=== PATIENT | female | born 1945 | race Caucasian/White ===

== ENCOUNTER 2021-03-27 10:50 | Inpatient (IN) | payer OTHER ==
[2021-03-27 12:06] LABS: Absolute Lymphocytes (CBC) 0.9 K/uL (0.7-4.9); Basophils % 0.1 % (0-1.3); Hematocrit 39.5 % (36.0-45.0); Lymphocytes % 4.5 % (15.3-44.8); MPV 10.3 fL (7.6-11.3); RBC Red Blood Cell Count 4.42 M/uL (3.86-4.86)
[2021-03-27 12:09] LABS: Protime INR 1.3
[2021-03-27 12:47] LABS: Bilirubin Direct 0.3 mg/dL (0-0.2); Bilirubin Total 0.6 mg/dL (0.2-1.0); Potassium 3.2 mmol/L (3.5-5.1); Protein, Total 7.4 g/dL (6.4-8.2); Troponin (Emerg Dept Use Only) 0.22 ng/mL (0.0-0.045)
[2021-03-27 12:52] LABS: Platelet Estimate ADEQ
[2021-03-27 12:53] LABS: Blood Morphology Comment NOT SEEN (NOT SEEN)
--- NOTE | 2021-03-27 12:54 | RAD REPORT ---
EXAM DESCRIPTION: RAD - Chest Single View - 03/27/2021 12:34 pm CLINICAL HISTORY: DYSPNEA COMPARISON: Chest Single View dated 08/29/2017; Chest Pa And Lat (2 Views) dated 10/29/2016 FINDINGS: Lines: None. Lungs: No evidence of edema or pneumonia. Pleural: No significant pleural effusions or pneumothorax. Cardiac: The heart size is within normal limits. Bones: No acute fractures. Other: IMPRESSION: No acute cardiopulmonary disease.
[2021-03-27] MEDS ORDERED: ONDANSETRON 4 MG/2 ML VIAL IV PRN (13:05)
[2021-03-27] MEDS ORDERED: ACETAMINOPHEN 500 MG TAB PO PRN (13:05)
[2021-03-27] MEDS ORDERED: MORPHINE 2 MG/ML SYR IV PRN (13:05)
--- NOTE | 2021-03-27 13:11 | P.HP ---
Certification for Inpatient Patient admitted to: Inpatient With expected LOS: >2 Midnights Patient will require the following post-hospital care: None Practitioner: I am a practitioner with admitting privileges, knowledge of patient current condition, hospital course, and medical plan of care. Services: Services provided to patient in accordance with Admission requirements found in Title 42 Section 412.3 of the Code of Federal Regulations Patient History Date of Service: 03/27/21 Reason for admission: AMS; DEHYDRATION/HYPERNATREMIA History of Present Illness: Patient is a 75-year-old female with a history of Alzheimer's dementia. 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 The patient has been living at the assisted and for the last couple of months she has lost the ability to ambulate. She lives at [facility].Patient has had altered mentation. She was brought into the hospital for further evaluation. She was found to have a significantly elevated sodium level. Patient has of free water deficit of 5 L. Patient was admitted to the hospital and started on normal saline boluses. We will go ahead and switch patient to D5 water. Patient will be admitted to the hospital for further evaluation. Allergies aspirin Allergy (Verified 03/27/21 17:45) Unknown naproxen [From Aleve] Allergy (Verified 03/27/21 17:45) Unknown omeprazole [From Prilosec] Allergy (Verified 03/27/21 17:45) Unknown Home Medications: Acetaminophen [Tylenol] 650 mg PO Q6HR PRN 03/27/21 Amlodipine [Norvasc] 5 mg PO DAILY 03/27/21 Escitalopram Oxalate 20 mg PO DAILY 03/27/21 Lisinopril [Zestril] 10 mg PO DAILY 03/27/21 Megestrol Acetate 10 ml PO BID 03/27/21 Memantine HCl [Namenda Xr] 28 mg PO DAILY 03/27/21 Pravastatin Sodium 10 mg PO BEDTIME 03/27/21 Rivastigmine Tartrate [Rivastigmine] 6 mg PO BID 03/27/21 - Past Medical/Surgical History -: Alzheimer's dementia -: Hypertension -: And depression Past Surgical History: Patient denies surgical history - Family History Father Family History: Reviewed- Non-Contributory - Social History Smoking Status: Never smoker Alcohol use: No CD- Drugs: No Review of Systems 10-point ROS is otherwise unremarkable Physical Examination - Vital Signs Temperature: 98 F Blood Pressure: 140/80 Pulse: 88 Respirations: 18 Pulse Ox (%): 96 - Physical Exam General: Cachectic, Unresponsive HEENT: Atraumatic, PERRLA, Mucous membr. moist/pink, EOMI, Sclerae nonicteric Neck: Supple, 2+ carotid pulse no bruit, No LAD, Without JVD or thyroid abnormality Respiratory: Clear to auscultation bilaterally, Normal air movement Cardiovascular: Regular rate/rhythm, Normal S1 S2, No murmurs Gastrointestinal: Normal bowel sounds, Soft and benign, Non-distended, No tenderness Musculoskeletal: No clubbing, No swelling, No tenderness Integumentary: No rashes Neurological: Cranial nerves 3-12 intact, Abnormal strength - Studies Laboratory Data (last 24 hrs) 03/27/21 11:49: PT 15.0 H, INR 1.30, APTT 27.1 03/27/21 11:49: WBC 20.60 H*, Hgb 12.4, Hct 39.5, Plt Count 221 03/27/21 11:49: Sodium 168 H*, Potassium 3.2 L, BUN 49 H, Creatinine 1.34 H, Glucose 181 H, Total Bilirubin 0.6, AST 41 H, ALT 54, Alkaline Phosphatase 67, Lipase 57 L Assessment & Plan - Problems (Diagnosis) (1) Fronto-temporal dementia Current Visit: Yes Status: Acute (2) Anorexia Current Visit: Yes Status: Acute (3) Hypernatremia Current Visit: Yes Status: Acute (4) AMS (altered mental status) Current Visit: Yes Status: Acute (5) HTN (hypertension) Current Visit: Yes Status: Acute - Plan Plan: 1. Patient's free water deficit of 5L which should be corrected over 3 days; will do D5Wr at about 75 cc/hr. 2. Once patient's mentation improved with the physical therapy evaluation 3. Speech therapy evaluation 4. Spoke with family regarding hospice care. Will reassess once she wakes up and they will see she does after treatment 5. Strict blood pressure control 6. GI and DVT prophylaxis Discharge Plan: Senior Care Plan to discharge in: Greater than 2 days - Advance Directives Does patient have a Living Will: No Does patient have a Durable POA for Healthcare: No - Code Status/Comfort Care Code Status Assessed: Yes Code Status: Full Code Critical Care: No Time Spent Managing PTS Care (In Minutes): 45
--- NOTE | 2021-03-27 13:14 | EDPHYS ---
Physician Documentation [facility] Name: Idalmis Petty Age: 75 yrs Sex: Female : 1945 Arrival Date: 03/27/2021 Time: 10:59 Bed 26 Private MD: ED Physician Sami Bang HPI: 03/27 13:08 This 75 yrs old Female presents to ER via EMS with complaints of Low oxygen jr8 saturationn. 13:08 This is a 75-year-old female that presented to the emergency room via EMS after being jr8 toned out for low oxygen saturation at the care home. EMS stated that the care home had told him that her oxygen was in the 60s and 70s. EMS read in the 80s upon arrival. Patient now 95% on nasal cannula. Subsequently EMS stated that she also was initially hypotensive. Patient received fluid bolus and now normotensive at this time. Historical: - Allergies: 11:21 Aleve; jl7 11:21 Aspirin; jl7 11:21 Prilosec; jl7 - Home Meds: 11:21 amlodipine 5 mg tab 1 tab once daily [Active]; escitalopram oxalate 10 mg Oral tab 1 jl7 tab once daily [Active]; Exelon 6 mg Oral cap 1 cap 2 times per day [Active]; lisinopril 10 mg Oral tab 1 tab once daily [Active]; Namenda XR 28 mg oral CSpX 1 cap once daily [Active]; pravastatin 20 mg Oral tab 1 tab once daily [Active]; - PMHx: 11:21 dementia without behavioral disturbance; gastro-esophageal reflux; Hyperlipidemia; jl7 Hypertension; Hypothyroidism; Major Depressive Disorder; Depressive disorder; - Immunization history:: Adult Immunizations unknown. - Social history:: Smoking status: unknown. ROS: 13:08 Unable to obtain ROS due to baseline dementia. jr8 Exam: 13:08 Eyes: Pupils equal round and reactive to light, extra-ocular motions intact. Lids and jr8 lashes normal. Conjunctiva and sclera are non-icteric and not injected. Cornea within normal limits. Periorbital areas with no swelling, redness, or edema. ENT: Nares patent. No nasal discharge, no septal abnormalities noted. Tympanic membranes are normal and external auditory canals are clear. Oropharynx with no redness, swelling, or masses, exudates, or evidence of obstruction, uvula midline. Mucous membranes moist. Neck: Trachea midline, no thyromegaly or masses palpated, and no cervical lymphadenopathy. Supple Cardiovascular: Regular rate and rhythm with a normal S1 and S2. Grade 3/6 systolic murmur present over the right and left sternal borders. No pulse deficits noted. Respiratory: Lungs have equal breath sounds bilaterally, clear to auscultation and percussion. No rales, rhonchi or wheezes noted. No increased work of breathing, no retractions or nasal flaring. Abdomen/GI: Soft, with normal bowel sounds. Patient has grimace and moaning with palpation of the abdomen no distention noted Skin: Warm, dry with normal turgor. Normal color with no rashes, no lesions, and no evidence of cellulitis. MS/ Extremity: Pulses equal, no cyanosis. Neurovascular intact. Full, normal range of motion. 13:08 Neuro: Orientation: Not oriented to person, place, time, situation, Mentation: able to follow commands, Patient follows some commands, Motor: moves all fours, seizure activity, is not displayed by the patient, Abnormal movements: resting tremor, is located in the right arm and left arm. Vital Signs: 11:00 BP 108 / 56; Pulse 91; Resp 19; Temp 97; Pulse Ox 95% on R/A; Weight 65.77 kg; jl7 11:30 BP 109 / 88; Pulse 93; Resp 19; Pulse Ox 94% ; jl7 12:00 BP 113 / 95; Pulse 103; Resp 19; Pulse Ox 95% ; jl7 12:30 BP 102 / 55; Pulse 108; Resp 18; Pulse Ox 95% ; jl7 13:00 BP 105 / 68; Pulse 92; Resp 19; Pulse Ox 99% ; jl7 14:00 BP 107 / 74; Pulse 80; Resp 15; Pulse Ox 99% ; jl7 MDM: 11:08 Patient medically screened. [facility] 13:12 Data reviewed: vital signs, nurses notes, lab test result(s), EKG, radiologic studies, [facility] CT scan, plain films. Data interpreted: Pulse oximetry: on room air is 95 %. Interpretation: normal. Counseling: I had a detailed discussion with the patient and/or guardian regarding: the historical points, exam findings, and any diagnostic results supporting the discharge/admit diagnosis, lab results, radiology results, the need for further work-up and treatment in the hospital. 03/27 11:15 Order name: Basic Metabolic Panel [facility] 03/27 11:15 Order name: Blood Culture Adult (2) [facility] 03/27 11:15 Order name: CBC with Diff [facility] 03/27 11:15 Order name: CPK [facility] 03/27 11:15 Order name: LFT's [facility] 03/27 11:15 Order name: Lactate [facility] 03/27 11:15 Order name: Lipase [facility] 03/27 11:15 Order name: Procalcitonin [facility] 03/27 11:15 Order name: Protime (+inr) [facility] 03/27 11:15 Order name: Ptt, Activated; Complete Time: 12:26 [facility] 03/27 11:15 Order name: Troponin (emerg Dept Use Only); Complete Time: 12:51 [facility] 03/27 11:15 Order name: Urine Microscopic Only [facility] 03/27 11:16 Order name: Basic Metabolic Panel; Complete Time: 12:51 EDMS 03/27 11:15 Order name: Chest Single View XRAY; Complete Time: 13:14 [facility] 03/27 11:16 Order name: Blood Culture [facility] 03/27 11:16 Order name: CBC with Automated Diff; Complete Time: 13:14 EDMS 03/27 11:16 Order name: Creatine Phosphokinase; Complete Time: 12:51 EDMS 03/27 11:16 Order name: Liver (Hepatic) Function; Complete Time: 12:51 EDMS 03/27 11:16 Order name: Lactate; Complete Time: 12:26 EDMS 03/27 11:16 Order name: Lipase; Complete Time: 12:51 EDMS 03/27 11:16 Order name: Procalcitonin; Complete Time: 13:14 EDMS 03/27 11:16 Order name: Protime (+INR); Complete Time: 12:26 EDMS 03/27 12:34 Order name: SARS-COV-2 RT PCR; Complete Time: 13:41 EDMS 03/27 12:51 Order name: CT Abd/Pelvis - IV Contrast Only; Complete Time: 14:07 [facility] 03/27 12:53 Order name: Manual Differential; Complete Time: 13:14 EDMS 03/27 13:09 Order name: Comprehensive Metabolic Panel [facility] 03/27 13:09 Order name: Comprehensive Metabolic Panel [facility] 03/27 13:28 Order name: Urine Dipstick-Ancillary; Complete Time: 13:41 [facility] 03/27 15:39 Order name: Lactate Sepsis 2 HR Follow-up; Complete Time: 15:52 [facility] 03/27 11:15 Order name: Accucheck; Complete Time: 13:28 [facility] 03/27 11:15 Order name: Cardiac monitoring; Complete Time: 12:05 [facility] 03/27 11:15 Order name: EKG - Nurse/Tech; Complete Time: 12:56 [facility] 03/27 11:15 Order name: IV Saline Lock - Large Bore; Complete Time: 12:05 [facility] 03/27 11:15 Order name: Labs collected and sent; Complete Time: 12:05 [facility] 03/27 11:15 Order name: O2 Per Protocol; Complete Time: 12:05 [facility] 03/27 11:15 Order name: O2 Sat Monitoring; Complete Time: 12:05 [facility] 03/27 11:15 Order name: Urine Dipstick-Ancillary (obtain specimen); Complete Time: 13:28 [facility] 03/27 11:16 Order name: Straight Cath - Urine; Complete Time: 13:28 [facility] 03/27 13:09 Order name: NPO [facility] Administered Medications: 13:20 Drug: Lactated Ringers Solution 1000 ml Route: IV; Rate: bolus; Site: right wrist; jl7 14:53 Follow up: Response: No adverse reaction; IV Status: Completed infusion; IV Intake: jl7 1000ml 13:25 Drug: Zosyn (piperacillin-tazobactam) 3.375 grams Route: IVPB; Infused Over: 60 mins; jl7 Site: right antecubital; 14:25 Follow up: IV Status: Completed infusion jl7 13:26 Not Given (Physician Discretion): NS 0.9% 1000 ml IV at 1000 ml once jl7 14:03 Drug: D5-1/2 NS 1000 ml Route: IV; Rate: 100 ml/hr; Site: right wrist; jl7 14:54 Follow up: IV Status: Infusion continued upon admission jl7 14:53 Drug: Lovenox (enoxaparin) 1 mg/kg Route: Sub-Q; Site: abdomen; jl7 16:16 Follow up: Response: No adverse reaction jl7 Disposition: 03/28 00:16 Co-signature as Attending Physician, Sami Bang MD I agree with the assessment and kdr plan of care. Disposition Summary: 03/27/21 13:14 Hospitalization Ordered Hospitalization Status: Inpatient Admission jr8 Provider: Natalya Denton Location: Telemetry/MedSurg (Inpatient) jr8 Condition: Fair jr8 Problem: new jr8 Symptoms: have improved jr8 Bed/Room Type: Standard 8 Room Assignment: 202(03/27/21 15:20) em1 Diagnosis - Dehydration jr8 - Sepsis, unspecified organism jr8 - Subsequent non-ST elevation (NSTEMI) myocardial infarction jr8 Forms: - Medication Reconciliation Form jr8 - SBAR form jr8 Signatures: Dispatcher [employer] EDMS Sami Bang MD MD [facility] Colt Granados em1 Kathryn Abreu RN RN ss Alexis Vickers PA PA jr8 Martin Valle RN RN jl7 Corrections: (The following items were deleted from the chart) 03/27 12:34 11:16 CORONAVIRUS+MR.LAB.BRZ ordered. EDMI EDMS 13:10 13:08 This 75 yrs old Female presents to ER via EMS with complaints of jr8 Hypotension. jr8 14:25 13:14 jr8 ss 15:20 14:25 220 ss em1
--- NOTE | 2021-03-27 13:14 | ER ---
Nurse's Notes [facility] Name: Idalmis Petty Age: 75 yrs Sex: Female : 1945 Arrival Date: 03/27/2021 Time: 10:59 Bed 26 Private MD: Diagnosis: Dehydration;Sepsis, unspecified organism;Subsequent non-ST elevation (NSTEMI) myocardial infarction Presentation: 03/27 11:00 Chief complaint: EMS states: Toned out for low O2, jail reports 60%'s, put her jl7 on nasal canula at 8 lpm and pt was 98% on EMS arrival. EMS got RA at 88% put pt on 4 lpm NC, pt maintained 94%. BP was 80 Systolic on EMS arrival, gave 200 mL NS IV and BP 118/69 [employer] at hospital. 11:00 Coronavirus screen: difficulty breathing, Client presents with at least one sign or jl7 symptom that may indicate coronavirus-19. Standard/surgical mask placed on the client. Provider contacted for isolation considerations. Ebola Screen: No symptoms or risks identified at this time. Initial Sepsis Screen: Does the patient meet any 2 criteria? HR > 90 bpm. No. Patient's initial sepsis screen is negative. Does the patient have a suspected source of infection? No. Patient's initial sepsis screen is negative. Risk Assessment: Do you want to hurt yourself or someone else? Patient reports no desire to harm self or others. Onset of symptoms is unknown. Care prior to arrival: Medication(s) given: Normal saline infusion, 200 mL IV initiated. 22 GA, in the left antecubital area, Glucose check: 118 Oxygen administered. via nasal cannula. Transition of care: patient was received from another setting of care ([facility]. 11:00 Method Of Arrival: EMS: [facility] jl7 11:00 Acuity: MERRILL 3 jl7 Triage Assessment: 11:00 General: Appears in no apparent distress. uncomfortable, Behavior is calm, cooperative. jl7 Pain: Unable to use pain scale. non-verbal. Neuro: Level of Consciousness is awake, Oriented to none. Cardiovascular: Patient's skin is warm and dry. Respiratory: Airway is patent Respiratory effort is even, unlabored, Respiratory pattern is regular, symmetrical. Derm: Skin is pink, warm \T\ dry. Historical: - Allergies: 11:21 Aleve; jl7 11:21 Aspirin; jl7 11:21 Prilosec; jl7 - Home Meds: 11:21 amlodipine 5 mg tab 1 tab once daily [Active]; escitalopram oxalate 10 mg Oral tab 1 jl7 tab once daily [Active]; Exelon 6 mg Oral cap 1 cap 2 times per day [Active]; lisinopril 10 mg Oral tab 1 tab once daily [Active]; Namenda XR 28 mg oral CSpX 1 cap once daily [Active]; pravastatin 20 mg Oral tab 1 tab once daily [Active]; - PMHx: 11:21 dementia without behavioral disturbance; gastro-esophageal reflux; Hyperlipidemia; jl7 Hypertension; Hypothyroidism; Major Depressive Disorder; Depressive disorder; - Immunization history:: Adult Immunizations unknown. - Social history:: Smoking status: unknown. Screenin:00 Abuse screen: Denies threats or abuse. Denies injuries from another. Nutritional jl7 screening: No deficits noted. Tuberculosis screening: No symptoms or risk factors identified. Fall Risk IV access (20 points). Total Henry Fall Scale indicates No Risk (0-24 pts). Assessment: 11:00 General: see triage. jl7 Vital Signs: 11:00 BP 108 / 56; Pulse 91; Resp 19; Temp 97; Pulse Ox 95% on R/A; Weight 65.77 kg; jl7 11:30 BP 109 / 88; Pulse 93; Resp 19; Pulse Ox 94% ; jl7 12:00 BP 113 / 95; Pulse 103; Resp 19; Pulse Ox 95% ; jl7 12:30 BP 102 / 55; Pulse 108; Resp 18; Pulse Ox 95% ; jl7 13:00 BP 105 / 68; Pulse 92; Resp 19; Pulse Ox 99% ; jl7 14:00 BP 107 / 74; Pulse 80; Resp 15; Pulse Ox 99% ; jl7 ED Course: 10:59 Patient arrived in ED. em1 11:00 Patient has correct armband on for positive identification. Placed in gown. Bed in low jl7 position. Call light in reach. Side rails up X 1. traffic monitor specialist on. Pulse ox on. NIBP on. Warm blanket given. 11:02 Alexis Vickers PA is PHCP. jr8 11:02 Sami Bang MD is Attending Physician. jr8 11:14 Martin Valle, NINFA is Primary Nurse. jl7 11:20 Triage completed. jl7 11:21 Arm band placed on right wrist. jl7 11:40 Inserted saline lock: 20 gauge in right wrist, using aseptic technique. Blood collected.jl7 11:40 First set of blood cultures drawn by me. jl7 11:48 Initial lab(s) drawn, by me, sent to lab. Second set of blood cultures drawn. Inserted jl7 saline lock: 22 gauge in right antecubital area, using aseptic technique. Blood collected. 12:30 Straight cath inserted, using sterile technique, 14 Fr. Specimen obtained. Returned jl7 cloudy urine. Patient tolerated well. 12:34 Chest Single View XRAY In Process Unspecified. EDMS 13:12 Natalya Denton MD is Hospitalizing Provider. jr8 13:35 CT Abd/Pelvis - IV Contrast Only In Process Unspecified. EDMS 16:14 No provider procedures requiring assistance completed. Patient admitted, IV remains in jl7 place. intact, No redness/swelling at site. Administered Medications: 13:20 Drug: Lactated Ringers Solution 1000 ml Route: IV; Rate: bolus; Site: right wrist; jl7 14:53 Follow up: Response: No adverse reaction; IV Status: Completed infusion; IV Intake: jl7 1000ml 13:25 Drug: Zosyn (piperacillin-tazobactam) 3.375 grams Route: IVPB; Infused Over: 60 mins; jl7 Site: right antecubital; 14:25 Follow up: IV Status: Completed infusion jl7 13:26 Not Given (Physician Discretion): NS 0.9% 1000 ml IV at 1000 ml once jl7 14:03 Drug: D5-1/2 NS 1000 ml Route: IV; Rate: 100 ml/hr; Site: right wrist; jl7 14:54 Follow up: IV Status: Infusion continued upon admission jl7 14:53 Drug: Lovenox (enoxaparin) 1 mg/kg Route: Sub-Q; Site: abdomen; jl7 16:16 Follow up: Response: No adverse reaction jl7 Intake: 14:53 IV: 1000ml; Total: 1000ml. jl7 Outcome: 13:14 Decision to Hospitalize by Provider. jr8 16:14 Admitted to Med/surg accompanied by tech, via stretcher, room 202, with chart, Report jl7 called to NINFA Reyes 16:14 Condition: stable 16:14 Discharge instructions given to patient, Instructed on the need for admit, Demonstrated understanding of instructions. 16:16 Patient left the ED. jl7 Signatures: Dispatcher [employer] [place] em1 Alexis Vickers PA PA 8 Martin Valle RN RN jl7 Corrections: (The following items were deleted from the chart) 13:27 13:25 Zosyn (piperacillin-tazobactam) 3.375 grams IVPB in right hand over 60 mins jl7 jl7
[2021-03-27] MEDS ORDERED: PIPERACIL/TAZO 3.375 GM VIAL IV ONE (13:23)
[2021-03-27] MEDS ORDERED: NA CHLORIDE 0.9% 100 ML ONE (13:23)
[2021-03-27] MEDS ORDERED: Ringers Lactate 1,000 ML IV ONE (13:25)
[2021-03-27] MEDS ORDERED: D5 0.45 NS 1,000 ML IV ONE (13:25)
[2021-03-27 13:28] LABS: Urine Blood Trace-intact (Negative); Urine Glucose Negative (Negative); Urine Protein 1+ (Negative); Urine Specific Gravity 1.025 (1.005-1.030); Urine pH 5.5 (5.0-7.0)
--- NOTE | 2021-03-27 14:00 | RAD REPORT ---
EXAM DESCRIPTION: CTAbdomen Pelvis W Contrast - 03/27/2021 1:34 pm CLINICAL HISTORY: ABD PAIN COMPARISON: No comparisons TECHNIQUE: CT of the abdomen and pelvis was performed. All CT scans are performed using dose optimization technique as appropriate and may include automated exposure control or mA/KV adjustment according to patient size. FINDINGS: Lower chest: Mild consolidation left lower lobe. Liver: No acute abnormality or suspicious lesions. Biliary: Cholelithiasis. Stomach: Small hiatal hernia suspected. Duodenum: No significant focal abnormality. Pancreas: No significant abnormality. Spleen: No significant abnormality. Adrenal: 2.4 cm left adrenal nodule. Kidney/ureter: No hydronephrosis. No renal calculi. There are faint striations of the left kidney. No hydronephrosis. Retroperitoneum: No retroperitoneal adenopathy. Vascular: No aneurysm. Bowel: Moderate rectal stool burden. No bowel obstruction.. Peritoneum: No ascites or free air. Bladder: Grossly unremarkable. Reproductive: No adnexal masses. Bones: No acute fracture. Other: n/a IMPRESSION: 1. Faint left renal striations could reflect streak artifact but difficult to exclude py elonephritis. No hydronephrosis. 2. Moderate rectal stool burden which could indicate fecal impaction. No bowel obstruction. 3. Indeterminate left adrenal nodule. Though statistically benign even in the presence of known cance r, these are typically further evaluated with a adrenal protocol CT or MRI for confirmation. 4. Mild left basilar consolidation which likely represents atelectasis. Mild pneumonia/pneumonitis is within differential for a source of infection.
[2021-03-27] MEDS ORDERED: ENOXAPARIN 60 MG/0.6 ML SQ ONE (15:08)
[2021-03-27 16:21] LABS: Urine Bacteria LOADED /HPF (<20); Urine RBC <5 /HPF (NONE SEEN)
[2021-03-27 16:22] LABS: Urine Mucus HEAVY /HPF (NONE SEEN)
[2021-03-27] MEDS: D5 0.45 NS 1,000 ML IV SCH ×2 (16:39→22:00)
[2021-03-27 16:42] VITALS: BMI 22.5
[2021-03-27] MEDS: CEFTRIAXONE 1 GM/NS 50 ML 1 GM/50 ML BAG IV SCH (21:00)
[2021-03-27] MEDS ORDERED: CEFTRIAXONE 1000 MG/VIAL ONE (21:17)
[2021-03-27] MEDS ORDERED: NA CHLORIDE 0.9% 50 ML ONE (21:22)
[2021-03-28] MEDS: D5 0.45 NS 1,000 ML IV SCH (06:00)
[2021-03-28 06:37] LABS: Absolute Lymphocytes (CBC) 1.2 K/uL (0.7-4.9); Basophils % 0.2 % (0-1.3); Lymphocytes % 8.2 % (15.3-44.8); MPV 10.2 fL (7.6-11.3)
[2021-03-28 06:54] LABS: RBC Red Blood Cell Count 3.41 M/uL (3.86-4.86)
[2021-03-28 06:54] LABS: Albumin 1.5 g/dL (3.4-5.0); Bilirubin Total 0.4 mg/dL (0.2-1.0); Protein, Total 5.4 g/dL (6.4-8.2)
[2021-03-28 06:55] LABS: Hematocrit 30.1 % (36.0-45.0)
[2021-03-28 07:02] LABS: Potassium 2.9 mmol/L (3.5-5.1)
[2021-03-28] MEDS ORDERED: POTASSIUM PHOS 45 MM in NA CHLORIDE 0.9% 500 ML IV ONE (09:21)
[2021-03-28] MEDS: CEFTRIAXONE 1 GM/NS 50 ML 1 GM/50 ML BAG IV SCH ×2 (09:45→19:42)
[2021-03-28] MEDS: D5W 1,000 ML IV SCH (09:45)
[2021-03-28] MEDS: ENOXAPARIN 30 MG/0.3 ML SQ SCH (09:47)
[2021-03-28 14:28] LABS: Potassium 3.1 mmol/L (3.5-5.1)
[2021-03-28] MEDS ORDERED: KCL 20 MEQ/100 mL IVPB 20 MEQ/100 ML BAG IV SCH (15:00)
[2021-03-29] MEDS: D5W 1,000 ML IV SCH ×3 (01:51→15:42)
[2021-03-29 05:57] LABS: Absolute Lymphocytes (CBC) 1.5 K/uL (0.7-4.9); Basophils % 0.2 % (0-1.3); Hematocrit 29.6 % (36.0-45.0); Lymphocytes % 13.3 % (15.3-44.8); MPV 10.4 fL (7.6-11.3); RBC Red Blood Cell Count 3.36 M/uL (3.86-4.86)
[2021-03-29 06:25] LABS: Albumin 1.4 g/dL (3.4-5.0); Bilirubin Total 0.3 mg/dL (0.2-1.0); Protein, Total 5.4 g/dL (6.4-8.2)
[2021-03-29] MEDS: ENOXAPARIN 30 MG/0.3 ML SQ SCH (08:41)
[2021-03-29] MEDS: CEFTRIAXONE 1 GM/NS 50 ML 1 GM/50 ML BAG IV SCH ×2 (08:41→19:42)
[2021-03-30] MEDS: D5W 1,000 ML IV SCH ×4 (03:39→19:52)
[2021-03-30] MEDS: CEFTRIAXONE 1 GM/NS 50 ML 1 GM/50 ML BAG IV SCH ×2 (08:18→19:54)
[2021-03-30] MEDS: ENOXAPARIN 30 MG/0.3 ML SQ SCH (08:18)
[2021-03-30] MEDS ORDERED: D5W 1,000 ML IV SCH (10:57)
[2021-03-30 13:24] LABS: Albumin 1.5 g/dL (3.4-5.0); Bilirubin Total 0.4 mg/dL (0.2-1.0); Protein, Total 6.1 g/dL (6.4-8.2)
[2021-03-30 13:32] LABS: Potassium 2.7 mmol/L (3.5-5.1)
[2021-03-30] MEDS ORDERED: HYDROCORTISONE SUC 100 MG INJ IV ONE (14:30)
--- NOTE | 2021-03-30 15:07 | P.PN ---
Subjective Date of Service: 03/28/21 The patient is clinically stable. She appears to be waking up a little bit more. Review of Systems 10-point ROS is otherwise unremarkable Physical Examination - Vital Signs Temperature: 98 F Blood Pressure: 140/80 Pulse: 88 Respirations: 18 Pulse Ox (%): 96 - Physical Exam General: Demented, Unresponsive Neck: Supple, JVD not distended Respiratory: Clear to auscultation bilaterally, Normal air movement Cardiovascular: Regular rate/rhythm, Normal S1 S2, No murmurs Gastrointestinal: Normal bowel sounds, Soft and benign, Non-distended, No tenderness Musculoskeletal: No clubbing, No swelling, No tenderness Neurological: Sensation intact, Cranial nerves 3-12 intact - Studies Medications List Reviewed: Yes Assessment & Plan - Problems (Diagnosis) (1) Fronto-temporal dementia Current Visit: Yes Status: Acute (2) Anorexia Current Visit: Yes Status: Acute (3) Hypernatremia Current Visit: Yes Status: Acute (4) AMS (altered mental status) Current Visit: Yes Status: Acute (5) HTN (hypertension) Current Visit: Yes Status: Acute - Plan Plan: Continue plan of care as mentioned below: 1. Continue with 75 cc/hr. 2. PT evaluation Wednesday 3. Speech therapy evaluation as well; 4. Spoke with family regarding hospice care. Will reassess once she wakes up and they will see she does after treatment 5. Strict blood pressure control 6. GI and DVT prophylaxis Discharge Plan: Alf Plan to discharge in: Greater than 2 days - Advance Directives Does patient have a Living Will: No Does patient have a Durable POA for Healthcare: No - Code Status/Comfort Care Code Status: Full Code Critical Care: No Time Spent Managing PTS Care (In Minutes): 35
--- NOTE | 2021-03-30 15:09 | P.PN ---
Date of Service: 03/29/21 Subjective Patient is more awake and alert. However, she is still not eating much of anything. Will clean mouth and suction to bedside Review of Systems 10-point ROS is otherwise unremarkable Physical Examination - Vital Signs Reviewed - Physical Exam General: Demented, Unresponsive Neck: Supple, JVD not distended Respiratory: Clear to auscultation bilaterally, Normal air movement Cardiovascular: Regular rate/rhythm, Normal S1 S2, No murmurs Gastrointestinal: Normal bowel sounds, Soft and benign, Non-distended, No tenderness Musculoskeletal: No clubbing, No swelling, No tenderness Neurological: Sensation intact, Cranial nerves 3-12 intact - Studies Medications List Reviewed: Yes Assessment & Plan - Problems (Diagnosis) (1) Fronto-temporal dementia Current Visit: Yes Status: Acute (2) Anorexia Current Visit: Yes Status: Acute (3) Hypernatremia Current Visit: Yes Status: Acute (4) AMS (altered mental status) Current Visit: Yes Status: Acute (5) HTN (hypertension) Current Visit: Yes Status: Acute - Plan Plan: Continue plan of care as mentioned below: 1. Continue with 75 cc/hr. Sodium is correcting slowly. May increase the rate 2. PT evaluation Wednesday 3. Speech therapy evaluation as well; 4. Hospice care as an outpatient if not eating well prior to discharge 5. Strict blood pressure control 6. GI and DVT prophylaxis Discharge Plan: Half-Way Plan to discharge in: Greater than 2 days - Advance Directives Does patient have a Living Will: No Does patient have a Durable POA for Healthcare: No - Code Status/Comfort Care Code Status: Full Code Critical Care: No Time Spent Managing PTS Care (In Minutes): 35
--- NOTE | 2021-03-30 15:11 | P.PN ---
Date of Service: 03/30/21 Subjective The patient is much more awake and alert. She ate some pudding and was able to swallow it without difficulty. Will get physical therapy and speech therapy evaluation. Speak with family regarding her code status Review of Systems 10-point ROS is otherwise unremarkable Physical Examination - Vital Signs Reviewed - Physical Exam General: Demented but awake and alert Neck: Supple, JVD not distended Respiratory: Clear to auscultation bilaterally, Normal air movement; upper airway congestion Cardiovascular: Regular rate/rhythm, Normal S1 S2, No murmurs Gastrointestinal: Normal bowel sounds, Soft and benign, Non-distended, No tenderness Musculoskeletal: No clubbing, No swelling, No tenderness Neurological: Sensation intact, Cranial nerves 3-12 intact - Studies Medications List Reviewed: Yes Assessment & Plan - Problems (Diagnosis) (1) Fronto-temporal dementia Current Visit: Yes Status: Acute (2) Anorexia Current Visit: Yes Status: Acute (3) Hypernatremia Current Visit: Yes Status: Acute (4) AMS (altered mental status) Current Visit: Yes Status: Acute (5) HTN (hypertension) Current Visit: Yes Status: Acute - Plan Plan: Continue plan of care as mentioned below: 1. Increase IV fluids to 125 cc/hr. Sodium is correcting slowly. May increase the rate 2. PT evaluation Wednesday 3. Speech therapy in the morning 4. Hospice care as an outpatient if not eating well prior to discharge; spoke to family regarding this 5. Strict blood pressure control 6. GI and DVT prophylaxis Discharge Plan: Long-Term Plan to discharge in: Greater than 2 days - Advance Directives Does patient have a Living Will: No Does patient have a Durable POA for Healthcare: No - Code Status/Comfort Care Code Status: Full Code Critical Care: No Time Spent Managing PTS Care (In Minutes): 35
[2021-03-30] MEDS: POTASSIUM CL 40 MEQ in NA CHLORIDE 0.9% 500 ML IV SCH ×2 (15:30→19:53)
[2021-03-30] MEDS: MEGESTROL 400 MG/10 ML UCUP PO SCH (19:53)
[2021-03-30 21:00] LABS: Potassium 3.5 mmol/L (3.5-5.1)
[2021-03-31 06:47] LABS: Absolute Lymphocytes (CBC) 1.2 K/uL (0.7-4.9); Basophils % 0.3 % (0-1.3); Hematocrit 29.8 % (36.0-45.0); Lymphocytes % 12.5 % (15.3-44.8); MPV 9.9 fL (7.6-11.3); RBC Red Blood Cell Count 3.47 M/uL (3.86-4.86)
[2021-03-31 07:04] LABS: BUN Blood Urea Nitrogen 8 mg/dL (7-18); Bicarbonate 24 mmol/L (21-32); Glucose Level 133 mg/dL (74-106); Sodium Level 149 mmol/L (136-145)
[2021-03-31 07:06] LABS: Potassium 2.9 mmol/L (3.5-5.1)
[2021-03-31] MEDS: MEGESTROL 400 MG/10 ML UCUP PO SCH ×2 (09:00→20:42)
--- NOTE | 2021-03-31 09:12 | P.PN ---
Subjective Date of Service: 03/31/21 Primary Care Provider: shelter Chief Complaint: AMS; DEHYDRATION/HYPERNATREMIA Subjective: Demented Physical Examination - Vital Signs Temperature: 98.2 F Blood Pressure: 130/81 Pulse: 74 Respirations: 14 Pulse Ox (%): 94 - Studies Medications List Reviewed: Yes Assessment & Plan Discharge Plan: [facility] Plan to discharge in: 24 Hours Physician Review Additional Text: COVID: Negative CXR: COMPARISON: Chest Single View dated 08/29/2017; Chest Pa And Lat (2 Views) dated 10/29/2016 FINDINGS: Lines: None. Lungs: No evidence of edema or pneumonia. Pleural: No significant pleural effusions or pneumothorax. Cardiac: The heart size is within normal limits. Bones: No acute fractures. Other: IMPRESSION: No acute cardiopulmonary disease. CT Ab/pelvis: COMPARISON: No comparisons TECHNIQUE: CT of the abdomen and pelvis was performed. All CT scans are performed using dose optimization technique as appropriate and may include automated exposure control or mA/KV adjustment according to patient size. FINDINGS: Lower chest: Mild consolidation left lower lobe. Liver: No acute abnormality or suspicious lesions. Biliary: Cholelithiasis. Stomach: Small hiatal hernia suspected. Duodenum: No significant focal abnormality. Pancreas: No significant abnormality. Spleen: No significant abnormality. Adrenal: 2.4 cm left adrenal nodule. Kidney/ureter: No hydronephrosis. No renal calculi. There are faint striations of the left kidney. No hydronephrosis. Retroperitoneum: No retroperitoneal adenopathy. Vascular: No aneurysm. Bowel: Moderate rectal stool burden. No bowel obstruction.. Peritoneum: No ascites or free air. Bladder: Grossly unremarkable. Reproductive: No adnexal masses. Bones: No acute fracture. Other: n/a IMPRESSION: 1. Faint left renal striations could reflect streak artifact but difficult to exclude pyelonephritis. No hydronephrosis. 2. Moderate rectal stool burden which could indicate fecal impaction. No bowel obstruction. 3. Indeterminate left adrenal nodule. Though statistically benign even in the pr esence of known cancer, these are typically further evaluated with a adrenal protocol CT or MRI for confirmation. 4. Mild left basilar consolidation which likely represents atelectasis. Mild pneumonia/pneumonitis is within differential for a source of infection. Physical Exam: GENERAL: Patient with dementia. VITAL SIGNS: Reviewed HEENT: Neck supple LUNGS: Clear to auscultation. No crackles or wheezes are heard. HEART: Regular rate and rhythm, no appreciable gallops, rubs, murmurs or extra heart sounds ABDOMEN: Soft, nontender, and nondistended. Positive bowel sounds. No hepatosplenomegaly was noted. EXTREMITIES: Without any cyanosis, clubbing, rash, lesions or peripheral edema. NEUROLOGIC: Patient with dementia SKIN: Normal color, turgor and temperature. No ulcerations or rashes noted. Impression: Toxic encephalopathy secondary to UTI, urine culture positive for E. 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 coli: We will transition from Rocephin to Ceftin 250 mg 1 pill twice daily. Patient will need total of 7 days. Currently on day 4. Physical therapy and speech therapy ordered. Await recommendations. Severe protein malnutrition with anorexia and dehydration complicated with hypernatremia: Dietary consulted to help address and monitor daily needs. Patient is taking Megace to help with her nutrition. Continue D5 water. Will decrease IV fluid rate. Continue to monitor sodium level. Replace potassium and magnesium. Electrolyte protocol in place. Continue to monitor closely. 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 Hypertension: Blood pressure stable off medication. Patient normally takes lisinopril and Norvasc. Continue monitor blood pressure. If blood pressure sta rts to increase then will consider adding back Norvasc initially. Hyperlipidemia: Restart pravastatin 10 mg daily Depression: Restart Lexapro 20 mg daily. Code Status: Full Code. Will need to readdress advance directives. DVT prophylaxis: Lovenox Advanced Care Planning-30 minutes: Return to snf likely with hospice at discharge. Will discuss plan of care with family. Time Spent Managing Pts Care (In Minutes): 55
[2021-03-31] MEDS: ENOXAPARIN 30 MG/0.3 ML SQ SCH (10:11)
[2021-03-31] MEDS: D5W 1,000 ML IV SCH ×2 (10:16→20:46)
[2021-03-31] MEDS ORDERED: KCL 20 MEQ/100 mL IVPB 20 MEQ/100 ML BAG IV SCH (12:00)
[2021-03-31] MEDS: KCL 20 MEQ/100 mL IVPB 20 MEQ/100 ML BAG IV SCH ×2 (15:00→16:00)
[2021-03-31] MEDS: MEMANTINE HCL 10 MG TABLET PO SCH ×2 (15:00→20:42)
[2021-03-31] MEDS: ATORVASTATIN 10 MG TAB PO SCH (20:42)
[2021-03-31] MEDS: CEFUROXIME 250 MG TAB PO SCH (20:42)
[2021-03-31] MEDS: ENSURE ENLIVE 237 ML CAN PO SCH (20:43)
[2021-03-31] MEDS: RIVASTIGMINE TARTRATE 1.5 MG PO SCH (21:00)
[2021-04-01] MEDS: D5W 1,000 ML IV SCH ×2 (05:34→17:15)
[2021-04-01 06:12] LABS: Absolute Lymphocytes (CBC) 1.6 K/uL (0.7-4.9); Basophils % 0.3 % (0-1.3); Hematocrit 33.8 % (36.0-45.0); Lymphocytes % 16.4 % (15.3-44.8); RBC Red Blood Cell Count 3.89 M/uL (3.86-4.86)
--- NOTE | 2021-04-01 06:15 | P.PN ---
Subjective Date of Service: 04/01/21 [facility] Provider: [facility] Chief Complaint: AMS; DEHYDRATION/HYPERNATREMIA Subjective: Improving, Doing well, Demented Physical Examination - Vital Signs Temperature: 98.2 F Blood Pressure: 123/60 Pulse: 72 Respirations: 18 Pulse Ox (%): 95 - Studies Medications List Reviewed: Yes Assessment & Plan Discharge Plan: [facility] Plan to discharge in: 24 Hours Physician Review Additional Text: COVID: Negative CXR: COMPARISON: Chest Single View dated 08/29/2017; Chest Pa And Lat (2 Views) dated 10/29/2016 FINDINGS: Lines: None. Lungs: No evidence of edema or pneumonia. Pleural: No significant pleural effusions or pneumothorax. Cardiac: The heart size is within normal limits. Bones: No acute fractures. Other: IMPRESSION: No acute cardiopulmonary disease. CT Ab/pelvis: COMPARISON: No comparisons TECHNIQUE: CT of the abdomen and pelvis was performed. All CT scans are performed using dose optimization technique as appropriate and may include automated exposure control or mA/KV adjustment according to patient size. FINDINGS: Lower chest: Mild consolidation left lower lobe. Liver: No acute abnormality or suspicious lesions. Biliary: Cholelithiasis. Stomach: Small hiatal hernia suspected. Duodenum: No significant focal abnormality. Pancreas: No significant abnormality. Spleen: No significant abnormality. Adrenal: 2.4 cm left adrenal nodule. Kidney/ureter: No hydronephrosis. No renal calculi. There are faint striations of the left kidney. No hydronephrosis. Retroperitoneum: No retroperitoneal adenopathy. Vascular: No aneurysm. Bowel: Moderate rectal stool burden. No bowel obstruction.. Peritoneum: No ascites or free air. Bladder: Grossly unremarkable. Reproductive: No adnexal masses. Bones: No acute fracture. Other: n/a IMPRESSION: 1. Faint left renal striations could reflect streak artifact but difficult to exclude pyelonephritis. No hydronephrosis. 2. Moderate rectal stool burden which could indicate fecal impaction. No bowel obstruction. 3. Indeterminate left adrenal nodule. Though statistically benign even in the presence of known cancer, these are typically further evaluated with a adrenal protocol CT or MRI for confirmation. 4. Mild left basilar consolidation which likely represents atelectasis. Mild pneumonia/pneumonitis is within differential for a source of infection. Physical Exam: GENERAL: Patient with dementia. Patient more alert today. VITAL SIGNS: Reviewed HEENT: Neck supple LUNGS: Clear to auscultation. No crackles or wheezes are heard. HEART: Regular rate and rhythm, no appreciable gallops, rubs, murmurs or extra heart sounds ABDOMEN: Soft, nontender, and nondistended. Positive bowel sounds. No hepatosplenomegaly was noted. EXTREMITIES: Without any cyanosis, clubbing, rash, lesions or peripheral edema. NEUROLOGIC: Patient with dementia SKIN: Normal color, turgor and temperature. No ulcerations or rashes noted. Impression: Toxic encephalopathy secondary to UTI, urine culture positive for E. 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 coli: Patient doing well. More alert. Patient with underlying dementia. Continue Ceftin 250 mg 1 pill twice daily. Patient will need total of 7 days. Currently on day 5. Continue with physical therapy and speech therapy. Await to discuss with family about plan of care. Patient will return to the long-term likely on hospice care. Severe protein malnutrition with anorexia and dehydration complicated with hypernatremia: Sodium level improved. Continue with D5 water. Recheck lab later today. Continue Megace to help with nutrition. Encourage oral intake. Will monitor closely. Dietary consulted to help with nutrition. 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 Hypertension: Blood pressure stable off medication. Patient normally takes lisinopril and Norvasc. Continue monitor blood pressure. If blood pressure starts to increase then will consider adding back Norvasc initially. Hyperlipidemia: Continue pravastatin 10 mg daily Depression: Continue Lexapro 20 mg daily. Code Status: Full Code. Will need to readdress advance directives. Left message with daughterSpalomaly at [id number] DVT prophylaxis: Lovenox Advanced Care Planning-30 minutes: Anticipate back to the long-term likely with hospice in place. Need to discuss with family about plan of care. Left message with daughter. Time Spent Managing Pts Care (In Minutes): 55
[2021-04-01 06:23] LABS: BUN Blood Urea Nitrogen 6 mg/dL (7-18); Bicarbonate 24 mmol/L (21-32); Glucose Level 101 mg/dL (74-106); Magnesium 2.2 mg/dL (1.8-2.4); Potassium 3.4 mmol/L (3.5-5.1); Sodium Level 147 mmol/L (136-145)
[2021-04-01] MEDS: KCL 20 MEQ/100 mL IVPB 20 MEQ/100 ML BAG IV SCH ×2 (07:28→10:09)
[2021-04-01] MEDS: Memantine Hcl [Namenda Xr] 28 MG Cap.Spr.24 PO SCH (09:00)
[2021-04-01] MEDS: ENSURE ENLIVE 237 ML CAN PO SCH ×2 (09:00→22:03)
[2021-04-01] MEDS: ESCITALOPRAM 20 MG TAB PO SCH (10:09)
[2021-04-01] MEDS: CEFUROXIME 250 MG TAB PO SCH ×2 (10:10→22:02)
[2021-04-01] MEDS: ENOXAPARIN 30 MG/0.3 ML SQ SCH (10:10)
[2021-04-01] MEDS: MEMANTINE HCL 10 MG TABLET PO SCH ×2 (10:10→22:02)
[2021-04-01] MEDS: MEGESTROL 400 MG/10 ML UCUP PO SCH ×2 (10:11→22:03)
[2021-04-01 14:57] LABS: Potassium 3.6 mmol/L (3.5-5.1)
[2021-04-01] MEDS: RIVASTIGMINE TARTRATE 1.5 MG PO SCH ×2 (16:38→22:02)
[2021-04-01] MEDS ORDERED: POTASSIUM 25 MEQ EFFERV TAB PO ONE (17:00)
[2021-04-01] MEDS: ATORVASTATIN 10 MG TAB PO SCH (22:03)
[2021-04-02] MEDS: D5W 1,000 ML IV SCH ×2 (01:06→11:06)
--- NOTE | 2021-04-02 05:58 | P.DS ---
Admission Date: 03/27/21 Discharge Date: 04/02/21 Primary Care Provider: [facility] Disposition: TRANSFER TO RESIDENTIAL Discharge Condition: GOOD Reason for Admission: AMS; DEHYDRATION/HYPERNATREMIA Consultations: none Procedures: COVID: Negative CXR: COMPARISON: Chest Single View dated 08/29/2017; Chest Pa And Lat (2 Views) dated 10/29/2016 FINDINGS: Lines: None. Lungs: No evidence of edema or pneumonia. Pleural: No significant pleural effusions or pneumothorax. Cardiac: The heart size is within normal limits. Bones: No acute fractures. Other: IMPRESSION: No acute cardiopulmonary disease. CT Ab/pelvis: COMPARISON: No comparisons TECHNIQUE: CT of the abdomen and pelvis was performed. All CT scans are performed using dose optimization technique as appropriate and may include automated exposure control or mA/KV adjustment according to patient size. FINDINGS: Lower chest: Mild consolidation left lower lobe. Liver: No acute abnormality or suspicious lesions. Biliary: Cholelithiasis. Stomach: Small hiatal hernia suspected. Duodenum: No significant focal abnormality. Pancreas: No significant abnormality. Spleen: No significant abnormality. Adrenal: 2.4 cm left adrenal nodule. Kidney/ureter: No hydronephrosis. No renal calculi. There are faint striations of the left kidney. No hydronephrosis. Retroperitoneum: No retroperitoneal adenopathy. Vascular: No aneurysm. Bowel: Moderate rectal stool burden. No bowel obstruction.. Peritoneum: No ascites or free air. Bladder: Grossly unremarkable. Reproductive: No adnexal masses. Bones: No acute fracture. Other: n/a IMPRESSION: 1. Faint left renal striations could reflect streak artifact but difficult to exclude pyelonephritis. No hydronephrosis. 2. Moderate rectal stool burden which could indicate fecal impaction. No bowel obstruction. 3. Indeterminate left adrenal nodule. Though statistically benign even in the presence of known cancer, these are typically further evaluated with a adrenal protocol CT or MRI for confirmation. 4. Mild left basilar consolidation which likely represents atelectasis. Mild pneumonia/pneumonitis is within differential for a source of infection. Medical Problem List: Toxic encephalopathy secondary to UTI, urine culture positive for E. 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 The patient has been living at the care home and for the last couple of months she has lost the ability to ambulate. She lives at [facility].Patient has had altered mentation. She was brought into the hospital for further evaluation. She was found to have a significantly elevated sodium level. Patient has of free water deficit of 5 L. Patient was admitted to the hospital and started on normal saline boluses. We will go ahead and switch patient to D5 water. Patient will be admitted to the hospital for further evaluation. Hospital Course: Patient presented with toxic encephalopathy with anorexia and dehydration. Patient came from the care home. Patient was admitted for treatment. Patient received IV fluids to help correct her hypernatremia. Patient also treated with antibiotic therapy for her UTI. Patient was positive for E. coli on urine culture. Her condition improved. At discharge sodium level back to baseline. Electrolytes stable. Patient better hydrated and tolerating diet. At discharge the patient will continue with Ceftin 250 mg 1 pill twice daily for 2 more days for her UTI. UTI prevention will need to be enforced at the care home. The patient will return to the care home. Recommend to recheck labBMP in 1 to 2 weeks to monitor her progress. Patient with severe protein malnutrition with anorexia and dehydration. This improved with IV fluid hydration. Dietary was consulted to help with her nutrition. Patient is on a pured diet. At discharge patient will continue with Megace which had been started at the care home to help with her appetite. Patient currently takes Megace 40 mg twice daily. Recommend to monitor her intake closely. If intake is less than 50% she is to notify family to discuss further. Patient will continue with supplementation including Ensure Enlive 1 bottle twice daily. Recommend to monitor her intake closely. Further adjustments can be done by care home physician. Patient with moderate to severe frontal temporal dementia. This appears stable at this time. At discharge she will continue with Namenda XR 28 mg daily and rivastigmine 6 mg 1 pill twice daily. Patient may also continue with folic acid 1 mg daily. Advanced directives addressed in detail. Patient is DO NOT RESUSCITATE. If her condition continues to decline in the future family would consider hospice. Information about hospice provided by older adult social work specialist prior to discharge. Patient with history of hypertension. Blood pressures have been well controlled off medication. Patient previously taking lisinopril 10 mg daily and Norvasc 5 mg daily. Both medications have been discontinued. Recommend to monitor blood pressure daily. Recommend to maintain blood pressure less than 130/80. If consistently above 140/90 consider restarting Norvasc for better blood pressure control. This can be done with the help of her care home physician. Patient with hyperlipidemia. At discharge she will continue with her medication pravastatin 10 mg daily. Patient with depression. At discharge she will continue with Lexapro 20 mg daily. Vital Signs/Physical Exam: Temp Pulse Resp BP Pulse Ox 98.7 F 87 16 132/69 91 04/02/21 04:00 04/02/21 04:00 04/02/21 04:00 04/02/21 04:00 04/02/21 04:00 General: Alert, Cooperative, Demented HEENT: Atraumatic Neck: Supple Respiratory: Clear to auscultation bilaterally, Normal air movement Cardiovascular: Normal pulses, Regular rate/rhythm Gastrointestinal: Normal bowel sounds Musculoskeletal: No tenderness, No warmth Neurological: Normal speech, Normal strength at 5/5 x4 extr, Normal tone Laboratory Data at Discharge: WBC 9.90 K/uL (4.3-10.9) 04/01/21 05:50 Hgb 11.2 g/dL (12.0-15.0) L 04/01/21 05:50 Hct 33.8 % (36.0-45.0) L 04/01/21 05:50 Plt Count 232 K/uL (152-406) 04/01/21 05:50 PT 15.0 SECONDS (9.5-12.5) H 03/27/21 11:49 INR 1.30 03/27/21 11:49 APTT 27.1 SECONDS (24.3-36.9) 03/27/21 11:49 Sodium 145 mmol/L (136-145) 04/01/21 14:26 Potassium 3.6 mmol/L (3.5-5.1) 04/01/21 14:26 BUN 6 mg/dL (7-18) L 04/01/21 14:26 Creatinine 0.67 mg/dL (0.55-1.3) 04/01/21 14:26 Glucose 114 mg/dL (74-106) H 04/01/21 14:26 Magnesium 2.2 mg/dL (1.8-2.4) 04/01/21 05:50 Total Bilirubin 0.4 mg/dL (0.2-1.0) 03/30/21 11:31 AST 35 U/L (15-37) 03/30/21 11:31 ALT 35 U/L (12-78) 03/30/21 11:31 Alkaline Phosphatase 60 U/L (45-117) 03/30/21 11:31 Lipase 57 U/L (73-393) L 03/27/21 11:49 Home Medications: Acetaminophen [Tylenol] 650 mg PO Q6HR PRN 03/27/21 Escitalopram Oxalate 20 mg PO DAILY 03/27/21 Megestrol Acetate 10 ml PO BID 03/27/21 Memantine HCl [Namenda Xr] 28 mg PO DAILY 03/27/21 Pravastatin Sodium 10 mg PO BEDTIME 03/27/21 Rivastigmine Tartrate [Rivastigmine] 6 mg PO BID 03/27/21 Cefuroxime [Ceftin*] 250 mg PO BID #4 tab 04/02/21 Ensure Enlive 237 ml PO BID #60 can 04/02/21 Folic Acid 1 mg PO DAILY #90 tablet 04/02/21 New Medications: Cefuroxime [Ceftin*] 250 mg PO BID #4 tab Ensure Enlive 237 ml PO BID #60 can Folic Acid 1 mg PO DAILY #90 tablet Physician Discharge Instructions: Patient presented with toxic encephalopathy with anorexia and dehydration. Patient came from the care home. Patient was admitted for treatment. Patient received IV fluids to help correct her hypernatremia. Patient also treated with antibiotic therapy for her UTI. Patient was positive for E. coli on urine culture. Her condition improved. At discharge sodium level back to baseline. Electrolytes stable. Patient better hydrated and tolerating diet. At discharge the patient will continue with Ceftin 250 mg 1 pill twice daily for 2 more days for her UTI. UTI prevention will need to be enforced at the care home. The patient will return to the care home. Recommend to recheck labBMP in 1 to 2 weeks to monitor her progress. Patient with severe protein malnutrition with anorexia and dehydration. This improved with IV fluid hydration. Dietary was consulted to help with her nutrition. Patient is on a pured diet. At discharge patient will continue with Megace which had been started at the care home to help with her appetite. Patient currently takes Megace 40 mg twice daily. Recommend to monitor her intake closely. If intake is less than 50% she is to notify family to discuss further. Patient will continue with supplementation including Ensure Enlive 1 bottle twice daily. Recommend to monitor her intake closely. Further adjustments can be done by care home physician. Patient with moderate to severe frontal temporal dementia. This appears stable at this time. At discharge she will continue with Namenda XR 28 mg daily and rivastigmine 6 mg 1 pill twice daily. Patient may also continue with folic acid 1 mg daily. Advanced directives addressed in detail. Patient is DO NOT RESUSCITATE. If her condition continues to decline in the future family would consider hospice. Information about hospice provided by older adult social work specialist prior to discharge. Patient with history of hypertension. Blood pressures have been well controlled off medication. Patient previously taking lisinopril 10 mg daily and Norvasc 5 mg daily. Both medications have been discontinued. Recommend to monitor blood pressure daily. Recommend to maintain blood pressure less than 130/80. If consistently above 140/90 consider restarting Norvasc for better blood pressure control. This can be done with the help of her care home physician. Patient with hyperlipidemia. At discharge she will continue with her medication pravastatin 10 mg daily. Patient with depression. At discharge she will continue with Lexapro 20 mg daily. Diet: pureed Activity: Fall precautions Followup: NONE,NONE [Primary Care Provider] - Time spent managing pt's care (in minutes): 55
[2021-04-02 06:23] LABS: Absolute Lymphocytes (CBC) 1.3 K/uL (0.7-4.9); Basophils % 0.3 % (0-1.3); Hematocrit 33.1 % (36.0-45.0); Lymphocytes % 10.6 % (15.3-44.8); MPV 9.9 fL (7.6-11.3); RBC Red Blood Cell Count 3.84 M/uL (3.86-4.86)
[2021-04-02 06:24] VITALS: O2SAT 91
[2021-04-02 06:34] LABS: Potassium 3.7 mmol/L (3.5-5.1)
[2021-04-02] MEDS: Memantine Hcl [Namenda Xr] 28 MG Cap.Spr.24 PO SCH (09:00)
[2021-04-02] MEDS: MEMANTINE HCL 10 MG TABLET PO SCH (09:00)
[2021-04-02] MEDS: ENSURE ENLIVE 237 ML CAN PO SCH (09:00)
[2021-04-02] MEDS ORDERED: POTASSIUM 25 MEQ EFFERV TAB PO ONE (09:00)
[2021-04-02 09:02] VITALS: BP 148/73; TEMP 99.6
[2021-04-02] MEDS: MEGESTROL 400 MG/10 ML UCUP PO SCH (11:19)
[2021-04-02] MEDS: CEFUROXIME 250 MG TAB PO SCH (11:19)
[2021-04-02] MEDS: ENOXAPARIN 30 MG/0.3 ML SQ SCH (11:19)
[2021-04-02] MEDS: ESCITALOPRAM 20 MG TAB PO SCH (11:20)
== END 2021-04-02 11:51 | DRG 871 ==
LOC: ER 10:50 → ERHOLD 13:05 → 2ND 16:00
PROVIDERS: ADMIT Hospitalist; ATTEND Family Medicine
DX: A41.9 Sepsis, unspecified organism (principal); G92.9 Unspecified toxic encephalopathy; E43 Unspecified severe protein-calorie malnutrition; I21.4 Non-ST elevation (NSTEMI) myocardial infarction; N39.0 Urinary tract infection, site not specified; E87.0 Hyperosmolality and hypernatremia; R64 Cachexia; R65.20 Severe sepsis without septic shock; G31.09 Other frontotemporal neurocognitive disorder; I10 Essential (primary) hypertension; E86.0 Dehydration; K21.9 Gastro-esophageal reflux disease without esophagitis; F32.A Depression, unspecified; E78.5 Hyperlipidemia, unspecified; F02.80 Dementia in other diseases classified elsewhere, unspecified severity, without behavioral disturbance, psychotic disturbance, mood disturbance, and anxiety; B96.20 Unspecified Escherichia coli [E. coli] as the cause of diseases classified elsewhere; R63.0 Anorexia; Z88.8 Allergy status to other drugs, medicaments and biological substances; Z66 Do not resuscitate; Z88.5 Allergy status to narcotic agent; Z79.899 Other long term (current) drug therapy; Z68.22 Body mass index [BMI] 22.0-22.9, adult; Z20.822 Contact with and (suspected) exposure to COVID-19
CPT/HCPCS: 36415; 51702; 71045; 74177; 80048; 80053; 80076; 81003; 81015; 82550; 82947; 83605; 83690; 83735; 84145; 84484; 85025; 85610; 85652; 85730; 87040; 87077; 87086; 87088; 87186; 92526; 92610; 93005; 96361; 96365; 96372; 97161; 99285; J0696; J1650; J1720; J2543; J3480; J7040; J7120; J7799; Q9967; U0003